=== PATIENT | female | born 1955 | race Caucasian/White ===

== ENCOUNTER → 2016-12-07 | Outpatient (CLI) | payer BC ==
[~2016-12-07] MED LIST: ESTR1TAB2 PO; FLUO20CA34 PO; LEVO125T5 PO; LEVO150T PO; TRAM-10 PO; ZLF/100 PO
[2016-12-07 15:54] LABS: THYROID STIMULATING HORMONE 0.042 uIu/ml (0.300-4.500)
[2016-12-07 16:27] LABS: LYME DISEASE AB IGG NEG (NEG); LYME DISEASE AB IGM NEG (NEG)
== END | disposition home or self-care (01) ==
LOC: C.LABSPEC 14:56
PROVIDERS: ATTEND Internal Medicine
DX: E03.9 Hypothyroidism, unspecified (principal); W57.XXXA Bitten or stung by nonvenomous insect and other nonvenomous arthropods, initial encounter

== ENCOUNTER → 2017-01-15 | Outpatient (CLI) | payer BC ==
[~2017-01-15] MED LIST changes: +LEVO125T4 PO; -LEVO125T5 PO
[2017-01-15 13:04] LABS: BASO % 0.3 %; BASO ABS # 0.02 K/uL (0-0.2); COMPLETE YES; EOS % 1.3 %; HEMATOCRIT 44.6 % (37-47); IG% 0.3 %; LYMPH % 26.5 %; LYMPH ABS # 1.58 K/uL (1.2-3.4); MEAN CELL VOLUME 92.5 fL (80-100); MEAN CORPUSCULAR HEMOGLOBIN 30.7 pg (25-34); MEAN CORPUSCULAR HGB CONC 33.2 g/dl (32-36); MONO % 8.2 %; NEUT % 63.4 %; PLATELET COUNT 218 K/uL (130-400); RED BLOOD COUNT 4.82 M/uL (4.2-5.4); WHITE BLOOD COUNT 5.96 K/uL (4.8-10.8)
[2017-01-15 13:21] LABS: BLOOD UREA NITROGEN 15 mg/dl (7-18); BUN/CREATININE RATIO 13.5 (10-20); CALCIUM 9.5 mg/dl (8.5-10.1); CARBON DIOXIDE 27 mmol/L (21-32); CHLORIDE 106 mmol/L (98-107); GLUCOSE 93 mg/dl (70-99); POTASSIUM 4.3 mmol/L (3.5-5.1); SODIUM 140 mmol/L (136-145)
== END | disposition home or self-care (01) ==
LOC: C.CPL 12:10
PROVIDERS: ATTEND Orthopaedic Surgery
DX: Z01.818 Encounter for other preprocedural examination (principal); G56.02 Carpal tunnel syndrome, left upper limb; M67.40 Ganglion, unspecified site

== ENCOUNTER → 2017-01-26 | Day surgery (SDC) | payer BC ==
[2017-01-20 15:53] VITALS: Ht 160 cm; Wt 56.8 kg
[~2017-01-26] VITALS: Ht 160 cm; Wt 56.8 kg
[~2017-01-26] MED LIST changes: +ATROPINE SULFATE 0.1 MG/ML 5ML SYR IV PRN; +BUPIVACAINE 0.5 % 5 MG/1 ML MPF 30ML VIAL ONE; +CEFAZOLIN 1000MG/55 ML D5W IV SCH; +DEXAMETHASONE SOD INJ 4 MG/ML VIAL ONE; -ESTR1TAB2 PO; +EpHEDrine SULFATE INJ 50 MG/ML AMP IV PRN; +FENTANYL CITRATE INJ 50 MCG/1 ML 2 ML VIAL IV PRN; +FENTANYL CITRATE INJ 50 MCG/1 ML 2 ML VIAL ONE; +FLUMAZENIL 0.1 MG/1 ML 10 ML VIAL IV PRN; -FLUO20CA34 PO; +HYDROmorphone INJ 2 MG/ML SYR/VIAL IV PRN; +LABETALOL HCL IV 5 MG/ML 20ML IV PRN; +LACTATED RINGER'S 1000ML 1,000 ML IV SCH; +LACTATED RINGER'S 1000ML 500 ML IV SCH; -LEVO150T PO; +LIDOCAINE HCL 1% 20 ML VIAL ONE; +LIDOCAINE HCL 2% 2 ML VIAL (20MG/ML) ONE; +MEPERIDINE HCL 25 MG/ML CARP IV PRN; +MIDAZOLAM HCL 1 MG/ML 2ML VIAL ONE; +NALOXONE HCL 0.4 MG/1 ML VIAL/CARP IV PRN; +ONDANSETRON INJ 2 MG/ML 2 ML VIAL IV PRN; +ONDANSETRON INJ 2 MG/ML 2 ML VIAL ONE; +PHENYLEPHRINE 100MCG/ML 5ML SYR IV PRN; +PROPOFOL IV EMULSION 10 MG/ML 20 ML VIAL IV ONE; +SODIUM CHLORIDE 0.9% 1000ML 1,000 ML IV SCH; +TRAMADOL HCL 50 MG TAB PO PRN
--- NOTE | 2017-01-26 07:24 | History & Physical Bridge - [place] ---
H&P Re-Evaluation Bridge Note: I have examined the patient, reviewed the History & Physical and in the interval since the performance of the History & Physical I have noted the following changes of clinical significance: No changes noted
--- NOTE | 2017-01-26 08:42 | [facility] Post Operative Brief Note ---
Immediate Operative Summary Operative Date Jan 26, 2017. Pre-Operative Diagnosis Left wrist carpal tunnel and left wrist ganglion cyst. Post-Operative Diagnosis Same as pre-op Procedure(s) Performed Left Carpal Tunnel Release And Left Wrist Ganglion Cyst Excision Surgeon Dr. Farrell Monogram Maker Surgeon(s) Gerald DE LEON Estimated Blood Loss ZERO Findings ABOVE Specimens None Anesthesia LMA Complication(s) None Disposition Recovery Room / PACU
--- NOTE | 2017-01-26 08:44 | Discharge Instructions-SurgCtr ---
Discharge Instructions Date of Service Jan 26, 2017. Visit Reason for Visit: Left Carpal Tunnel Syndrome And Left Ganglion Cyst Discharge Discharge Diagnosis / Problem: SAME ABOVE Discharge Goals Goal(s): Decrease discomfort, Improve function Activity Recommendations Activity Limitations: as noted below Lifting Limitations: until after follow-up appointment Driving or Machine Use: resume 1 day after discharge Anesthesia . Post Anesthesia Instructions: If you have had General Anesthesia or IV Sedation: * Do not drive today. * Resume driving when surgeon permits. * Do not make important decisions or sign legal documents today. * Call surgeon for: 1. Temperature elevations greater than 101 degrees F. 2. Uncontrollable pain. 3. Excessive bleeding. 4. Persistent nausea and vomiting. 5. Medication intolerance (nausea, vomiting or rash). * For nausea and vomiting use only clear liquids such as: tea, soda, bouillon until nausea subsides, then gradually increase diet as tolerated. * If you have any concerns or questions, call your surgeon's office. If physician is unavailable and it is an emergency, call 911 or go to the nearest emergency room. . Instructions / Follow-Up Instructions / Follow-Up MEDICATIONS: * Resume previous medications unless instructed otherwise by your surgeon. * Always take pain medication on a full stomach or with food to avoid upset stomach. * Do not drink alcohol or drive while taking narcotics. * Ibuprofen or Tylenol may be taken if narcotic not needed. SPECIAL CARE INSTRUCTIONS: __ None _X_ Keep extremity elevated and iced x 48 hours; apply ice 20-30 minutes 8-10 times/day. May remove at night. __ Sling __24 hrs/day __ Remove at night __ Shoulder Immobilizer __ 24 hrs/day __ Remove at night _X_ Dressing _X_ Maintain until seen in office, may shower with plastic over site __ Remove dressings in 24-48 hours and then may shower __ Cover incisions with band-aids after showering __ Do not remove steri-strips Call physician if chills or temperature rises above 102 degrees or pain unrelieved by prescribed pain medications at . . Diet Recommendations Home Diet: no limitations Fluid Restriction: None Procedures Procedures Performed: Left Carpal Tunnel Release And Left Wrist Ganglion Cyst Excision Pending Studies Studies pending at discharge: no Work Instructions Return To Work: after follow-up Lifting Limitations: no more than 10 pounds Medical Emergencies . Who to Call and When: Medical Emergencies: If at any time you feel your situation is an emergency, please call 911 immediately. . Non-Emergent Contact Non-Emergency issues call your: Primary Care Provider Call Non-Emergent contact if: you have a fever, temperature is above 101.5 . . "Provider Documentation" section prepared by Jordan Coles. .
--- NOTE | 2017-01-26 09:32 | Anesthesia Progress Nt - [facility] ---
Anesthesia Post Op Note Date & Time Jan 26, 2017 at 09:32 Vital Signs Pain Intensity: 0 Vital Signs Past 12 Hours Date Time Temp Pulse Resp B/P (MAP) Pulse Ox O2 Delivery O2 Flow Rate FiO2 01/26/17 08:44 36.1 65 16 129/80 98 Mask 01/26/17 07:28 36.4 64 16 109/74 (86) 96 Room Air Notes Mental Status: alert / awake / arousable, participated in evaluation Pt Amnestic to Procedure: Yes Nausea / Vomiting: adequately controlled Pain: adequately controlled Airway Patency, RR, SpO2: stable & adequate BP & HR: stable & adequate Hydration State: stable & adequate Anesthetic Complications: no major complications apparent
[2017-01-26 09:42] VITALS: TEMP 36.6
[2017-01-26 10:08] VITALS: BP 114/72; PULSE 55; O2SAT 98
== END | disposition home or self-care (01) ==
LOC: X.SURG 07:16
PROVIDERS: ATTEND Orthopaedic Surgery
DX: G56.02 Carpal tunnel syndrome, left upper limb (principal); M67.432 Ganglion, left wrist; F32.9 Major depressive disorder, single episode, unspecified

== ENCOUNTER → 2017-07-29 | Outpatient (CLI) | payer OTHER ==
[~2017-07-29] MED LIST changes: -ATROPINE SULFATE 0.1 MG/ML 5ML SYR IV PRN; -BUPIVACAINE 0.5 % 5 MG/1 ML MPF 30ML VIAL ONE; -CEFAZOLIN 1000MG/55 ML D5W IV SCH; -DEXAMETHASONE SOD INJ 4 MG/ML VIAL ONE; -EpHEDrine SULFATE INJ 50 MG/ML AMP IV PRN; -FENTANYL CITRATE INJ 50 MCG/1 ML 2 ML VIAL IV PRN; -FENTANYL CITRATE INJ 50 MCG/1 ML 2 ML VIAL ONE; -FLUMAZENIL 0.1 MG/1 ML 10 ML VIAL IV PRN; -HYDROmorphone INJ 2 MG/ML SYR/VIAL IV PRN; -LABETALOL HCL IV 5 MG/ML 20ML IV PRN; -LACTATED RINGER'S 1000ML 1,000 ML IV SCH; -LACTATED RINGER'S 1000ML 500 ML IV SCH; -LEVO125T4 PO; +LEVO125T5 PO; -LIDOCAINE HCL 1% 20 ML VIAL ONE; -LIDOCAINE HCL 2% 2 ML VIAL (20MG/ML) ONE; -MEPERIDINE HCL 25 MG/ML CARP IV PRN; -MIDAZOLAM HCL 1 MG/ML 2ML VIAL ONE; -NALOXONE HCL 0.4 MG/1 ML VIAL/CARP IV PRN; -ONDANSETRON INJ 2 MG/ML 2 ML VIAL IV PRN; -ONDANSETRON INJ 2 MG/ML 2 ML VIAL ONE; -PHENYLEPHRINE 100MCG/ML 5ML SYR IV PRN; -PROPOFOL IV EMULSION 10 MG/ML 20 ML VIAL IV ONE; -SODIUM CHLORIDE 0.9% 1000ML 1,000 ML IV SCH; -TRAMADOL HCL 50 MG TAB PO PRN
== END | disposition home or self-care (01) ==
LOC: C.PAPS 11:49
PROVIDERS: ATTEND Obstetrics & Gynecology
DX: Z01.419 Encounter for gynecological examination (general) (routine) without abnormal findings (principal)

== ENCOUNTER → 2017-08-11 | Outpatient (CLI) | payer OTHER ==
[~2017-08-11] MED LIST changes: -TRAM-10 PO
--- NOTE | 2017-08-11 15:38 | MAMMOGRAPHY REPORT ---
BILATERAL DIGITAL SCREENING MAMMOGRAM TOMOSYNTHESIS WITH CAD: 08/11/2017 CLINICAL HISTORY: Routine screening. TECHNIQUE: Breast tomosynthesis in addition to standard 2D mammography was performed. Current study was also evaluated with a Computer Aided Detection (CAD) system. COMPARISON: Comparison is made to exams dated: 06/26/2016 mammogram, 04/26/2015 mammogram, 10/03/2013 m ammogram, 09/29/2012 mammogram, 09/28/2011 mammogram, and 09/26/2010 mammogram - [facility] enter. BREAST COMPOSITION: The tissue of both breasts is heterogeneously dense, which may obscure small mas ses. FINDINGS: There is a possible area of architectural distortion in the posterior right breast along t he posterior nipple line on the MLO view (tomosynthesis slice 13/55), for which additional spot compr ession tomosynthesis views and possible ultrasound are recommended. No other suspicious mass, architectural distortion or cluster of microcalcifications is seen bilatera lly. IMPRESSION: ACR BI-RADS CATEGORY 0: INCOMPLETE EVALUATION: NEED ADDITIONAL IMAGING EVALUATION The possible area of architectural distortion in the posterior right breast needs additional evaluati on. The patient will be called to schedule an appointment. Approximately 10% of breast cancers are not detected with mammography. A negative mammographic report should not delay biopsy if a clinically suggestive mass is present. Ashly Kirk M.D. ay/:08/11/2017 12:47:14 Book Shelver: Meka MAGAÑA(Una)(Chay), [facility] letter sent: Addl Imaging 0 BI-RADS Code: ACR BI-RADS Category 0: Incomplete Evaluation: Need Additional Imaging Evaluation
== END | disposition home or self-care (01) ==
LOC: C.MAMM 11:07
PROVIDERS: ATTEND Internal Medicine
DX: Z12.31 Encounter for screening mammogram for malignant neoplasm of breast (principal); N64.9 Disorder of breast, unspecified

== ENCOUNTER → 2017-08-16 | Outpatient (CLI) | payer OTHER ==
--- NOTE | 2017-08-16 15:53 | MAMMOGRAPHY REPORT ---
UNILATERAL RIGHT DIGITAL DIAGNOSTIC MAMMOGRAM TOMOSYNTHESIS WITH CAD AND TARGETED RIGHT ULTRASOUND: CLINICAL HISTORY: Callback from screening mammogram for possible right breast architectural distortio n. TECHNIQUE: Breast tomosynthesis in addition to standard 2D mammography was performed. Current study was also evaluated with a Computer Aided Detection (CAD) system. Spot compression right CC and MLO 2 -D and tomosynthesis images were obtained. COMPARISON: Comparison is made to exams dated: 08/11/2017 mammogram, 04/26/2015 mammogram, 06/26/2016 m ammogram, 10/03/2013 mammogram, 09/29/2012 mammogram, and 09/26/2010 mammogram - [facility] enter. BREAST COMPOSITION: The tissue of the right breast is heterogeneously dense, which may obscure small masses. FINDINGS: The previously described possible architectural distortion within the right breast on the MLO view does not clearly persist on the spot compression view. On the spot compression cc view, the re is a questionable area of architectural distortion on the tomosynthesis images in the right latera l breast (slice 14/60). Targeted ultrasound was performed of the right lateral breast in the region of the questionable archi tectural distortion. In the right breast at 8:00, 3 cm from the nipple, there is a small focal hypoe choic lesion measuring 6 x 3 x 6 mm with possible associated architectural distortion seen during joel l-time imaging. This may correspond with the mammographic abnormality and is indeterminant. Recomme nd ultrasound-guided core needle biopsy for further evaluation. IMPRESSION: ACR BI-RADS CATEGORY 4: SUSPICIOUS, TARGETED ULTRASOUND ACR BI-RADS CATEGORY 4: SUSPICIO US Focal 6 mm hypoechoic lesion with possible associated architectural distortion seen in the right lewis st 8:00 on ultrasound, which may correspond with questionable mammographic architectural distortion. The finding is indeterminate and ultrasound-guided core needle biopsy is recommended for further michael luation. A phone call was made to the physician's office to confirm faxed results were received. The patient h as been verbally notified of the results. She tentatively scheduled the biopsy before leaving the de partment. Approximately 10% of breast cancers are not detected with mammography. A negative mammographic report should not delay biopsy if a clinically suggestive mass is present. Ellen Nichols M.D. /:08/16/2017 11:36:29 Tilting Saw Operator: Annika KNUTSON)(Chay), [facility] letter sent: Abnormal 4/5 BI-RADS Code: ACR BI-RADS Category 4: Suspicious Ultrasound BI-RADS: ACR BI-RADS Category 4: Suspici ous
== END | disposition home or self-care (01) ==
LOC: C.MAMM 10:34
PROVIDERS: ATTEND Internal Medicine
DX: N64.59 Other signs and symptoms in breast (principal)

== ENCOUNTER → 2017-08-24 | Outpatient (CLI) | payer OTHER ==
--- NOTE | 2017-08-24 13:29 | Discharge Instructions ---
Discharge Instructions Procedure Procedure Date: Aug 24, 2017. Reason for visit: Right Lesion/Distortion. Discharge Discharge Date: Aug 24, 2017. Discharge Diagnosis: post right breast ultrasound guided core biopsy Instructions Activity Recommendations: Additional Limitations (see below) Return to School/Work: no limitations Recommended Home Diet: No Limitations Provider Instructions: ACTIVITY RECOMMENDATIONS: * No lifting, pushing, pulling or exercising the affected side for three days. RETURN TO SCHOOL/WORK: * You may return to work/school after the procedure, but do not perform any strenuous activities for 24 to 48 hours. MEDICATIONS: * Tylenol (two 325 mg) every four to six hours if needed for mild pain (if not allergic to Tylenol). DIET: * Resume previous diet. SPECIAL CARE INSTRUCTIONS: * Keep biopsy site dry for 24 hours. May shower after 24 hours, but do not soak (bathe) incision. * May remove Tegaderm (plastic patch) tomorrow AFTER showering. * Leave the steri-strips on for one week. Allow the steri-strips to fall off by themselves. If not off after one week, you may remove them. You may place a Bandaid crosswise over the strips, if desired. * Apply ice 10 minutes on and 10 minutes off as needed. * Wear a bra at bedtime to sleep more comfortably for 2-3 days. * Your referring physician should have the results after approximately 5 to 7 business days. * Call for unusual bleeding, fever, drainage, etc or if you have any questions call [phone] during normal business hours or after hours call Dr Kirk, . FOLLOW UP VISIT: Follow-up with Referring Physician as scheduled. Allergies Coded Allergies: No Known Allergies (Unverified , 01/26/17) Fabiola Looney Recommendations: Call your doctor if: * Temperature above 101 degrees * Pain not relieved by pain medicine ordered * There is increased drainage or redness from any incision * You have any unanswered questions or concerns. Your Doctors Instructions noted above were prepared by provider Ashly Kirk. Patient Signature Section: Patient Instructions Signature Page Igor Pollack Patient (or Guardian) Signature/Date: I have read and understand the instructions given to me by my caregivers. Caregiver/RN/Doctor Signature/Date: The above-named patient and/or guardian has received patient instructions on this date. + Original Patient Signature Page (only) stays with chart. Please make copy for patient.
--- NOTE | 2017-08-25 14:01 | MAMMOGRAPHY REPORT ---
ULTRASOUND GUIDED BIOPSY RIGHT BREAST: 08/24/2017 CLINICAL HISTORY: Indeterminate subtle hypoechoic lesion and associated architectural distortion in t he 8:00 right breast. Patient presents for ultrasound guided core biopsy. COMPARISON: Comparison is made to exams dated: 08/16/2017 ultrasound, 08/11/2017 mammogram, 06/26/2016 mammogram, 04/26/2015 mammogram, 10/03/2013 mammogram, and 09/29/2012 mammogram - [facility]. PATIENT CONSENT: The procedure, risks and benefits were discussed with the patient and informed conse nt was obtained both verbally and in writing. Specific risks to this procedure include: bleeding, in fection, puncture of adjacent structure, nontarget biopsy, sampling error, pain, metal allergy and me dication reaction. PROCEDURE DESCRIPTION: A time out was performed and the right breast was agreed as the site of biopsy . The skin was prepped and draped in the usual sterile fashion. The subtle hypoechoic mass with assoc iated architectural distortion in the 8:00 right e target for biopsy. Subcutaneous and intraparenchym al 1% buffered lidocaine, with and without epinephrine, was administered as local anesthesia. A skin incision was made. Through the incision, 5 samples were taken with a 14 gauge Achieve biopsy device. A ribbon shaped metallic marker was placed at the biopsy site. Hemostasis was achieved after manual compression. The patient tolerated the procedure well and there was no immediate complication. The s amples were sent to the pathology department in an appropriately labeled container. Postprocedure right CC and ML tomosynthesis images were obtained. A new ribbon-shaped biopsy marker clip is identified in the 8:00 posterior right breast, at the site of the biopsied area of subtle arc hitectural distortion seen mammographically and on ultrasound. No significant postbiopsy hematoma. Based on the postprocedure ML view the ribbon-shaped clip is felt to align with the distortion seen o n the initial right MLO view from the 08/11/2017 screening mammogram. IMPRESSION: ULTRASOUND GUIDED BIOPSY Status post ultrasound guided core biopsy of a subtle area of architectural distortion in the 8:00 ri ght breast, with ribbon-shaped biopsy marker clip placed at the site. The patient will receive notification of the biopsy results from her referring physician. Ashly Kirk M.D. ay/:08/24/2017 13:58:42 Buffer Chrome: Annika MAGAÑA(R)(M), [facility]
--- NOTE | 2017-08-25 14:01 | MAMMOGRAPHY REPORT ---
UNILATERAL RIGHT DIGITAL DIAGNOSTIC MAMMOGRAM TOMOSYNTHESIS: 08/24/2017 CLINICAL HISTORY: Status post ultrasound-guided core biopsy of a subtle hypoechoic mass of architectu ral distortion in the 8:00 right breast. Please refer to the report from right breast ultrasound guided core biopsy performed at the same time for full detail. IMPRESSION: POST PROCEDURE IMAGING FOR MARKER PLACEMENT Please refer to the report from right breast ultrasound guided core biopsy performed at the same time for full detail. Approximately 10% of breast cancers are not detected with mammography. A negative mammographic report should not delay biopsy if a clinically suggestive mass is present. Ashly Kirk M.D. ay/:08/24/2017 13:28:48 Warehouse Clerk: Annika MAGAÑA(R)(M), [facility] BI-RADS Code: Post Procedure Imaging For Marker Placement
== END | disposition home or self-care (01) ==
LOC: C.MAMM 12:15
PROVIDERS: ATTEND Internal Medicine
DX: R92.8 Other abnormal and inconclusive findings on diagnostic imaging of breast (principal)

== ENCOUNTER → 2017-09-14 | Day surgery (SDC) | payer OTHER ==
[2017-09-13 07:53] VITALS: Ht 160 cm; Wt 56.8 kg
[~2017-09-14] VITALS: Ht 160 cm; Wt 56.8 kg
[~2017-09-14] MED LIST changes: +ATROPINE SULFATE 0.1 MG/ML 5ML SYR IV PRN; +BUPIVACAINE/EPINEPHRINE 0.5% MPF 1:200,000 30 ML VIAL ONE; +CEFAZOLIN 1000MG IV PUSH 7.5 ML IV SCH; +DEXAMETHASONE SOD INJ 4 MG/ML VIAL ONE; +EpHEDrine SULFATE INJ 50 MG/ML AMP IV PRN; +FENTANYL CITRATE INJ 50 MCG/1 ML 2 ML VIAL IV PRN; +FENTANYL CITRATE INJ 50 MCG/1 ML 2 ML VIAL ONE; +FLUMAZENIL 0.1 MG/1 ML 10 ML VIAL IV PRN; +HYDR-5688 PO; +HYDROCODONE/ACETAMIN 5/325MG TAB PO PRN; +IBUPROFEN 600 MG TAB PO PRN; +LACTATED RINGER'S 1000ML 1,000 ML IV SCH; +LIDOCAINE HCL 2% 2 ML VIAL (20MG/ML) ONE; +MIDAZOLAM HCL 1 MG/ML 2ML VIAL ONE; +NALOXONE HCL 0.4 MG/1 ML VIAL/CARP IV PRN; +ONDANSETRON INJ 2 MG/ML 2 ML VIAL IV PRN; +ONDANSETRON INJ 2 MG/ML 2 ML VIAL ONE; +PROMETHAZINE HCL INJ 12.5 MG in SODIUM CHLORIDE 0.9% 50ML 50 ML IV PRN; +PROPOFOL IV EMULSION 10 MG/ML 20 ML VIAL IV ONE; +SERT-234 PO; +SODIUM CHLORIDE 0.9% 1000ML 1,000 ML IV SCH; -ZLF/100 PO
--- NOTE | 2017-09-14 08:42 | Discharge Instructions-SurgCtr ---
Discharge Instructions Date of Service Sep 14, 2017. Visit Reason for Visit: Right Breast Lump Discharge Discharge Diagnosis / Problem: right breast lump Discharge Goals Goal(s): Learn about illness, Prevent Disease Progression Activity Recommendations Activity Limitations: as noted below Lifting Limitations: no more than 25 pounds Exercise/Sports Limitations: gradually increase as tolerated May Resume Sexual Activity: when tolerated Shower/Bathe: tomorrow Anesthesia . Post Anesthesia Instructions: If you have had General Anesthesia or IV Sedation: * Do not drive today. * Resume driving when surgeon permits. * Do not make important decisions or sign legal documents today. * Call surgeon for: 1. Temperature elevations greater than 101 degrees F. 2. Uncontrollable pain. 3. Excessive bleeding. 4. Persistent nausea and vomiting. 5. Medication intolerance (nausea, vomiting or rash). * For nausea and vomiting use only clear liquids such as: tea, soda, bouillon until nausea subsides, then gradually increase diet as tolerated. * If you have any concerns or questions, call your surgeon's office. If physician is unavailable and it is an emergency, call 911 or go to the nearest emergency room. . Instructions / Follow-Up Instructions / Follow-Up follow up with dr. gaspar in approx 2 weeks. Diet Recommendations Home Diet: resume previous diet Procedures Procedures Performed: right breast lumpectomy Pending Studies Studies pending at discharge: yes (pathology report) List of pending studies: pathology report Medical Emergencies . Who to Call and When: Medical Emergencies: If at any time you feel your situation is an emergency, please call 911 immediately. . Non-Emergent Contact Non-Emergency issues call your: Primary Care Provider, Surgeon Call Non-Emergent contact if: temperature is above 101, wound has increased drainage, wound has increased redness, wound has increased pain . . "Provider Documentation" section prepared by Efren Ross. .
--- NOTE | 2017-09-14 10:07 | [facility] Operative Report ---
Operative Report Operative Date Sep 14, 2017. Pre-Operative Diagnosis Right Breast Lump Post-Operative Diagnosis same Procedure(s) Performed Right Breast Lumpectomy With Needle Localization Surgeon Dr. Ross Continuity Reader Surgeon(s) Marcia Evans-MS3 Estimated Blood Loss 5 Specimens A)Right Breast Lumpectomy Out at 0934 Wire Lateral, 2 Short Sutures Superior, 1 Long Suture Poserior Sent to [facility] at 0943 Anesthesia Type MAC Complication(s) none Description of Procedure Prior to being brought to the operating room the patient had been to the breast center and had her right breast lesion needle localized without incident. She was then brought to the operating room and placed in supine position with the right arm extended. After successful placement of the laryngeal mask airway the right breast was sterilely prepped and draped in usual fashion. I began by making curvilinear incision medial to the entrance point of the guidewire with a 15 blade scalpel. We use electrocautery to create skin flaps in 360. I then cut the guidewire next to the skin and delivered the remainder of the guidewire into the wound itself. I then continue to use traction countertraction electrocautery to carry the dissection and 360 down to the pectoralis muscle of the chest. I was able to remove the specimen in 1 piece and marked such that 2 short sutures were superior the guidewire marked the lateral side and one long suture marked the posterior aspect. We thoroughly irrigated the wound. We did x-ray the a specimen to ensure that the identification clip and guidewire were central. We controlled any small bleeding points using electrocautery and then performed a final irrigation. I closed the wound in several layers using 2-0 Vicryl for the deeper layers 3-0 Vicryl for the mid layers and 4-0 Monocryl for the skin. Marcaine with epinephrine was injected around the wound for postoperative analgesia. Benzoin Steri-Strips were placed. The patient was then awakened extubated and transferred to recovery in stable condition. I attest to the content of the Intraoperative Record and any orders documented therein. Any exceptions are noted below.
[2017-09-14 10:58] VITALS: TEMP 36.3
[2017-09-14 11:22] VITALS: BP 104/67; PULSE 72; O2SAT 96
--- NOTE | 2017-09-14 11:36 | Anesthesia Progress Nt - [facility] ---
Anesthesia Post Op Note Date & Time Sep 14, 2017 at 11:35 Vital Signs Pain Intensity: 0 Vital Signs Past 12 Hours Date Time Temp Pulse Resp B/P (MAP) Pulse Ox O2 Delivery O2 Flow Rate FiO2 09/14/17 11:22 72 16 104/67 (79) 96 Room Air 09/14/17 10:58 36.3 74 12 112/69 (83) 92 Room Air 09/14/17 10:49 69 14 94 09/14/17 10:49 71 14 09/14/17 10:46 36.5 71 16 105/62 92 Room Air 09/14/17 10:46 105/62 09/14/17 10:44 72 12 09/14/17 10:44 72 12 100 09/14/17 10:41 104/62 09/14/17 10:39 73 20 09/14/17 10:39 73 20 89 09/14/17 10:36 103/56 09/14/17 10:34 73 15 98 09/14/17 10:34 73 15 09/14/17 10:31 105/69 09/14/17 10:29 80 15 09/14/17 10:29 79 15 91 09/14/17 10:26 105/73 09/14/17 10:24 75 14 09/14/17 10:24 75 14 98 09/14/17 10:21 108/68 09/14/17 10:19 76 18 98 09/14/17 10:19 78 18 09/14/17 10:16 112/63 09/14/17 10:14 73 18 97 09/14/17 10:14 73 18 09/14/17 10:11 106/65 09/14/17 10:09 80 18 95 09/14/17 10:09 79 18 09/14/17 10:06 106/65 09/14/17 10:04 78 17 09/14/17 10:04 78 17 93 09/14/17 10:01 108/65 09/14/17 09:59 82 16 09/14/17 09:59 82 16 93 09/14/17 09:56 115/70 09/14/17 09:54 36.2 78 16 115/70 99 Mask 10 09/14/17 07:45 36.2 71 16 108/69 (82) 97 Room Air Notes Mental Status: alert / awake / arousable, participated in evaluation Pt Amnestic to Procedure: Yes Nausea / Vomiting: adequately controlled Pain: adequately controlled Airway Patency, RR, SpO2: stable & adequate BP & HR: stable & adequate Hydration State: stable & adequate Anesthetic Complications: no major complications apparent
--- NOTE | 2017-09-14 15:14 | MAMMOGRAPHY REPORT ---
SPECIMEN: 09/14/2017 CLINICAL HISTORY: Right breast surgical excision specimen for a biopsy proven atypical lesion in the 8:00 right breast. Please refer to the report from right breast ultrasound-guided needle localization performed at the s gilberto time for full detail. IMPRESSION: SPECIMEN Please refer to the report from right breast ultrasound-guided needle localization performed at the s gilberto time for full detail. Ashly Kirk M.D. ay/:09/14/2017 09:06:07 Red Cap: Zulma KNUTSON)(Chay), [facility]
--- NOTE | 2017-09-14 15:14 | MAMMOGRAPHY REPORT ---
UNILATERAL RIGHT DIGITAL DIAGNOSTIC MAMMOGRAM TOMOSYNTHESIS: 09/14/2017 CLINICAL HISTORY: Preoperative wire localization for an atypical lesion in the 8:00 right breast. Please refer to the report from right breast ultrasound-guided needle localization performed at the s gilberto time for full detail. IMPRESSION: Please refer to the report from right breast ultrasound-guided needle localization performed at the s gilberto time for full detail. Approximately 10% of breast cancers are not detected with mammography. A negative mammographic report should not delay biopsy if a clinically suggestive mass is present. Ashly Kirk M.D. ay/:09/14/2017 09:05:30 Analytics Manager: Annika Coley, [facility] BI-RADS Code: n/a
--- NOTE | 2017-09-14 15:14 | MAMMOGRAPHY REPORT ---
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 She presents for preoperative needle and wire localization prior to surgical excisional biopsy. COMPARISON: Comparison is made to exams dated: 08/24/2017 ultrasound biopsy, 08/24/2017 mammogram, 2017 mammogram, 08/16/2017 ultrasound, 06/26/2016 mammogram, and 10/03/2013 mammogram - [facility]. PATIENT CONSENT: The risks of the procedure were explained to the patient and informed consent was ob tained. The patient denied eating or drinking anything this morning that would preclude anesthesia. No allergy to lidocaine. The patient did report she felt ill prior to the procedure. A timeout was performed and the right breast was agreed as the site for localization. PROCEDURE DESCRIPTION: Prior right breast imaging including post procedure mammograms obtained after the biopsy on 08/24/2017, images from the core biopsy performed 08/24/2017, and diagnostic mammogram and ultrasound images performed one 04/07/2018 were reviewed. The subtle hypoechoic lesion and as sociated architectural distortion in the 8:00 right breast is the intended target for localization. With the patient in the supine position with right arm extended, the lesion was identified with ultra sound. The associated ribbon-shaped biopsy marker clip is clearly identified on ultrasound and is th e intended target for localization. The skin of the right breast was cleansed with Betadine. 1% buf fered Lidocaine without epinephrine was administered as local anesthesia. A 5cm Hamlin II needle and wire combination was inserted into the breast and through the subtle hypoechoic lesion. Optimal posi tioning was confirmed and the needle was removed, leaving the wire in place, as per surgeon's prefere nce. The entire procedure including approach and wire length were discussed with the operating surge on prior to surgery. The patient tolerated the procedure well and there was no immediate complicatio n. She vomited in our department prior to being transferred to the surgical center, but ultimately l eft in satisfactory condition. The specimen radiograph demonstrates the biopsy marker clip, a portion of the localizing wire and elzbieta dence of architectural distortion, compatible with successful preoperative localization and subsequen t surgical excision. Final pathology is pending. IMPRESSION: NEEDLE LOCALIZATION Status post wire localization for a biopsy proven atypical lesion in the 8:00 right breast. The imag ed specimen includes the intended abnormalities. The patient will receive notification of the final pathology results from her operating surgeon. Ashly Kirk M.D. ay/:09/14/2017 10:51:16 Corner Cutter: Annika Coley, [facility]
== END | disposition home or self-care (01) ==
LOC: X.SURG 07:28
PROVIDERS: ATTEND Surgery
DX: N64.89 Other specified disorders of breast (principal); R92.0 Mammographic microcalcification found on diagnostic imaging of breast; E03.9 Hypothyroidism, unspecified; Z92.29 Personal history of other drug therapy; Z98.890 Other specified postprocedural states; Z80.3 Family history of malignant neoplasm of breast; Z80.41 Family history of malignant neoplasm of ovary; Z83.6 Family history of other diseases of the respiratory system; Z83.0 Family history of human immunodeficiency virus [HIV] disease; Z81.8 Family history of other mental and behavioral disorders